=== PATIENT | female | born 2000 | race Caucasian/White ===

== ENCOUNTER 2023-05-20 02:03 | Emergency (ER) | payer OTHER ==
[~2023-05-20] VITALS: Ht 157.5 cm; Wt 56.7 kg
[2023-05-20 02:30] VITALS: BP 127/90; PULSE 89; RESP 18; TEMP 98.5
[2023-05-20] MEDS ORDERED: LID5T TP (04:23)
[2023-05-20] MEDS ORDERED: IBUP-2213 PO (04:23)
[2023-05-20] MEDS ORDERED: ACET-2619 PO (04:23)
[2023-05-20] MEDS ORDERED: CYCL-711 PO (04:23)
[2023-05-20 04:30] VITALS: BP 127/90; PULSE 89; RESP 18; TEMP 98.5
[2023-05-20] MEDS: IBUPROFEN 600 MG TAB PO ONE (04:38)
[2023-05-20] MEDS: ACETAMINOPHEN EXTRA STRENGTH 500 MG TAB PO ONE (04:40)
== END 2023-05-20 06:09 | disposition home or self-care (01) ==
LOC: MED 02:03
DX: S39.012A Strain of muscle, fascia and tendon of lower back, initial encounter (principal); S80.02XA Contusion of left knee, initial encounter; Z79.899 Other long term (current) drug therapy; V89.2XXA Person injured in unspecified motor-vehicle accident, traffic, initial encounter; Y93.89 Activity, other specified; Y92.410 Unspecified street and highway as the place of occurrence of the external cause; Y99.8 Other external cause status
CPT/HCPCS: 72110; 73562; 99284